=== PATIENT | male | born 1980 ===

== ENCOUNTER → 2019-04-03 | Outpatient (CLI) | payer OTHER ==
[~2019-04-03] MED LIST: ACET325T9 PO; GADOTERATE 7.5 MMOL/15ML VIAL. IVP ONE; LISI10TA2 PO; MAGN100T6 PO; TAMS0.4C97 PO
--- NOTE | 2019-04-03 10:53 | KCIC ---
MRI of the Brain without and with Contrast 04/03/2019 Clinical History: Dizziness since 2017. Blurred vision.. Technique: Unenhanced T1-weighted sagittal and axial and FLAIR, T2-weighted, gradient echo and diffusion-weighted axial images of the brain were obtained. After the intravenous administration of 13 cc of DOTAREM, enhanced T1-weighted axial, sagittal and coronal images of the brain were obtained. Findings: The ventricles are within normal limits in size and configuration. Patchy and several small scattered areas of increased signal intensity are seen within the periventricular and subcortical white matter of both cerebral hemispheres on the FLAIR and T2-weighted images. These have a nonspecific MRI appearance. They likely represent areas of very mild small vessel ischemic disease. They can also be seen in patients with a history of migraine headaches. An area of encephalomalacia is seen involving the anterior left frontal lobe. This measures 3.3 cm in size. A arachnoid cyst is seen anterior to the left frontal lobe which measures 3 cm in greatest diameter. No significant mass effect is noted. No acute parenchymal abnormality is seen. No acute extra-axial fluid collection is noted. There is no MRI evidence of acute ischemia/infarction. No area of abnormal contrast enhancement is seen. The orbits are within normal limits. Mild mucosal thickening in seen scattered throughout the paranasal sinuses. Normal flow voids are seen within the major vascular structures surrounding the brain parenchyma. IMPRESSION: No acute parenchymal abnormality is seen. Electronically signed by: Rashaad Grace MD (04/03/2019 10:50 AM) [id number]
== END | disposition home or self-care (01) ==
LOC: KCIC MRI 07:51
PROVIDERS: ATTEND Family Medicine
DX: G93.0 Cerebral cysts (principal); G93.89 Other specified disorders of brain; J34.89 Other specified disorders of nose and nasal sinuses
CPT/HCPCS: 70553; A9575